=== PATIENT | female | born 1960 | race Caucasian/White ===

== ENCOUNTER 2020-03-02 02:16 | Inpatient (IN) | payer MEDICAID ==
[2020-03-02] VITALS (7 sets, daily range): BP systolic 91–148; BP diastolic 41–73; BMI 24.3
[~2020-03-02] VITALS: Ht 177.8 cm; Wt 77.1 kg
[2020-03-02] MEDS ORDERED: SYNTHROID75 MCG PO (02:21)
[2020-03-02] MEDS ORDERED: ZETIA10 MG PO (02:22)
[2020-03-02] MEDS ORDERED: KLONOPIN1 MG PO (02:22)
[2020-03-02 02:51] LABS: BASOPHILS 0.3 % (0-2); EOSINOPHILS 2.2 % (0-7); HEMATOCRIT 47.8 % (36.0-48.0); HEMOGLOBIN 15.4 g/dL (12-16); IMMATURE GRANULOCYTES 0.3 % (0-5); LYMPHOCYTES 32.8 % (15-50); MCH 31.2 pg (26.0-34.0); MCHC 32.2 g/dL (31.0-37.0); MEAN PLATELET VOLUME 10.9 fL (7.4-10.4); MONOCYTES 8.1 % (2-11); NEUTROPHILS 56.3 % (40-80); PLATELET COUNT 168 10x3/uL (130-400); RBC 4.93 10x6/uL (4.00-5.40); RDW 13.5 % (11.5-14.5); WBC 6.8 10x3/uL (4.8-10.8)
[2020-03-02 02:57] LABS: CALC OSMOLALITY 276 mosm/kg (275-300); CALCIUM 9.2 mg/dL (8.5-10.1); CARBON DIOXIDE 31.9 mmol/L (21.0-32.0); CHLORIDE - SERUM 102 mmol/L (98-107); CREATININE - SERUM 1.1 mg/dL (0.6-1.3); GLUCOSE 98 mg/dL (74-106); POTASSIUM - SERUM 4.2 mmol/L (3.5-5.1); SODIUM 138 mmol/L (136-145); UREA NITROGEN 16 mg/dL (7-18); eGFR NON AFRICAN AMERICAN 53 mL/min (90-120)
[2020-03-02 03:04] LABS: APTT 27.4 SECONDS (22.8-39.4); INR 0.95 (0.85-1.17); PROTIME 12.7 SECONDS (11.6-15.0)
[2020-03-02 03:13] LABS: ALBUMIN 3.6 g/dL (3.4-5.0); ALKALINE PHOSPHATASE 123 U/L (30-120); ALT (SGPT) 22 U/L (10-68); CKMB 0.3 U/L (0.0-3.6); CREATINE KINASE 50 UL (21-215); MAGNESIUM - SERUM 2.1 mg/dL (1.8-2.4); PROTEIN - SERUM 7.7 g/dL (6.4-8.2); THYROID STIMULATING HORMONE 0.14 uIU/mL (0.36-3.74)
[2020-03-02 03:17] LABS: TROPONIN-I < 0.017 ng/mL (0.000-0.060)
[2020-03-02 03:22] LABS: BILIRUBIN NEGATIVE (NEGATIVE); GLUCOSE NEGATIVE (NEGATIVE); KETONE NEGATIVE (NEGATIVE); NITRITE NEGATIVE (NEGATIVE); SPECIFIC GRAVITY 1.015 (1.005-1.020); UROBILINOGEN NORMAL (NORMAL)
[2020-03-02] MEDS ORDERED: ZOLOFT25 MG PO (05:27)
--- NOTE | 2020-03-02 07:34 | NUR ---
RESTING IN BED, NO DISTRESS NOTED, UP TO BATHROOM, UNSTEADY, LEANING LEFT, CONT TO MONITOR
--- NOTE | 2020-03-02 08:03 | NUR ---
SPOKE WITH DR REED, UPDATED ON ORDERS, NEW ORDERS NOTED, STATES THAT HE WILL SEE PT TOMORROW BUT IF NEEDED TODAY WE MAY CALL HIM BACK
--- NOTE | 2020-03-02 10:00 | NUR ---
REFUSING SCD, STATES THAT SHE GETS UP AND DOWN TO THE BATHROOM AND DOESNT WANT THEM ON
[2020-03-02 12:26] LABS: CKMB 0.1 U/L (0.0-3.6); CREATINE KINASE 39 UL (21-215)
[2020-03-02 12:29] LABS: TROPONIN-I < 0.017 ng/mL (0.000-0.060)
[2020-03-02 12:42] LABS: CHOL - HDL RATIO 4.9 ratio (2.3-4.1); LDL-HDL RATIO 3.5 ratio (1.5-3.5)
[2020-03-02 17:55] LABS: CKMB 0.4 U/L (0.0-3.6); CREATINE KINASE 36 UL (21-215)
[2020-03-02 17:56] LABS: TROPONIN-I < 0.017 ng/mL (0.000-0.060)
--- NOTE | 2020-03-02 20:05 | NUR ---
PATIENT REQUESTED BED ALARM BE TURNED OFF. PRINTED WAIVER FORM AND EXPLAINED TO THE PATIENT AND GUEST. PATIENT VERBALIZED UNDERSTANDING AND SIGNED FORM. PATIENT DENIES OTHER NEEDS AT THIS TIME. BED IN LOWEST POSITION AND CALL LIGHT WITHIN REACH. ENCOURAGED THE PATIENT TO CALL IF SHE HAS NEEDS. WILL CONTINUE TO MONITOR.
[2020-03-03] VITALS: BP 105/40
[2020-03-03 00:11] LABS: CKMB 0.2 U/L (0.0-3.6); CREATINE KINASE 33 UL (21-215); TROPONIN-I < 0.017 ng/mL (0.000-0.060)
[2020-03-03 04:00] VITALS: BP 106/64
[2020-03-03 06:21] LABS: BASOPHILS 0.2 % (0-2); EOSINOPHILS 1.4 % (0-7); HEMATOCRIT 44.9 % (36.0-48.0); HEMOGLOBIN 14.2 g/dL (12-16); IMMATURE GRANULOCYTES 0.2 % (0-5); LYMPHOCYTES 37.9 % (15-50); MCH 30.1 pg (26.0-34.0); MCHC 31.6 g/dL (31.0-37.0); MCV 95.3 fL (80.0-100.0); NEUTROPHILS 51.3 % (40-80); PLATELET COUNT 176 10x3/uL (130-400); RBC 4.71 10x6/uL (4.00-5.40); RDW 13.5 % (11.5-14.5); WBC 6.4 10x3/uL (4.8-10.8)
[2020-03-03 06:41] LABS: ALBUMIN 3.4 g/dL (3.4-5.0); ANION GAP 10.3 mmol/L (8-16); BILIRUBIN - TOTAL 0.28 mg/dL (0.2-1.3); CALCIUM 8.8 mg/dL (8.5-10.1); CARBON DIOXIDE 28.7 mmol/L (21.0-32.0); CREATININE - SERUM 0.9 mg/dL (0.6-1.3); PROTEIN - SERUM 6.9 g/dL (6.4-8.2)
[2020-03-03 08:43] VITALS: BP 108/50
--- NOTE | 2020-03-03 09:40 | NUR ---
ASSESSMENT PER FLOW SHEET. PATIENT IS WITHOUT DISTRESS. WEAKNESS NOTED TO LEFT ARM.PATIENT CAN AMBULATE WITH ASSIST.WAIVER SIGNED,PATIENT DECLINES BED ALARM. IV RIGHT AC TENDER,BUT FLUSHES WITH EASE AND HAS NO REDNESS.MONITOR FOR NEEDS.FAMILY AT BEDSIDE
[2020-03-03 12:49] VITALS: BP 121/55
[2020-03-03 14:28] VITALS: Ht 177.8 cm; Wt 77.1 kg
--- NOTE | 2020-03-03 15:05 | NUR ---
FAMILY REMAINS AT BEDSIDE. PATIENT IS WITHOUT NEEDS.CALL LIGHT IN REACH
[2020-03-03 17:25] VITALS: BP 110/60
[2020-03-03 20:00] VITALS: BP 132/59
[2020-03-04] VITALS: BP 105/64
[2020-03-04 04:00] VITALS: BP 93/48
[2020-03-04 05:12] LABS: BASOPHILS 0.1 % (0-2); EOSINOPHILS 1.3 % (0-7); HEMATOCRIT 44.1 % (36.0-48.0); HEMOGLOBIN 14.1 g/dL (12-16); IMMATURE GRANULOCYTES 0.1 % (0-5); LYMPHOCYTES 37.1 % (15-50); MCH 30.6 pg (26.0-34.0); MCV 95.7 fL (80.0-100.0); MEAN PLATELET VOLUME 11.4 fL (7.4-10.4); NEUTROPHILS 53.4 % (40-80); PLATELET COUNT 185 10x3/uL (130-400); RBC 4.61 10x6/uL (4.00-5.40); RDW 13.5 % (11.5-14.5); WBC 6.8 10x3/uL (4.8-10.8)
[2020-03-04 05:35] LABS: ALBUMIN 3.2 g/dL (3.4-5.0); ANION GAP 6.4 mmol/L (8-16); BILIRUBIN - TOTAL 0.13 mg/dL (0.2-1.3); CALCIUM 8.8 mg/dL (8.5-10.1); CARBON DIOXIDE 31.2 mmol/L (21.0-32.0); CREATININE - SERUM 0.9 mg/dL (0.6-1.3); PHOSPHOROUS 2.9 mg/dL (2.5-4.9); POTASSIUM - SERUM 3.6 mmol/L (3.5-5.1)
--- NOTE | 2020-03-04 08:00 | NUR ---
ASSESSMENT PER FLOW SHEET. PATIENT IS WITHOUT DISTRESS. LEFT ARM STRONGER TODAY.PATIENT STATES SHE FEELS BETTER AND HOPES TO DC HOME. MONITOR
[2020-03-04 09:30] VITALS: BP 125/59
[2020-03-04] MEDS ORDERED: PLAVIX75 MG PO (12:15)
[2020-03-04] MEDS ORDERED: ASPIRIN325 MG PO (12:15)
--- NOTE | 2020-03-04 13:31 | MORECARE ---
CASE MANAGEMENT DISCHARGE SUMMARY PATIENT: SAMMY MONROE UNIT: [id number] ADM DATE: 03/02/20 AGE: 59 : 56 SEX: F ROOM/BED: D.2237 AUTHOR: RAISA,DOC PHYSICIAN: REFERRING PHYSICIAN: NICKIE LANDON MD DATE OF SERVICE: 03/04/20 Discharge Plan Patient Name: SAMMY MONROE Facility: [facility]:[place] : 1960 Planned Disposition: Anticipated Discharge Date: Discharge Date: Expected LOS: Initial Reviewer: [email or web address] Initial Review Date: 03/04/2020 Generated: 03/04/20 2:31 pm Comments DCP- Discharge Planning Updated by [email or web address]: Adrienne Pham on 03/04/20 12:[address] Patient Name: SAMMY MONROE Admission Status: ER Accout number: [id number] Admission Date: 03-02-2020 : 1960 Admission Diagnosis: Attending: NICKIE LANDON Current LOS: 2 Anticipated DC Date: Planned Disposition: Primary Insurance: MEDICAID [place] Discharge Planning Comments: CM met with patient at bedside after explaining CM role and obtaining verbal consent. CM discussed availability / needs of home health, REHAB and medical equipment.JOSÉ SIGNED FOR [facility] . PATIENT STATES SHE HAS A WALKER AND OTHER EQUIPMENT AT HOME IF NEEDED AND HER FRIEND IS A RETIRED CHILLER HAND. PATIENT READY FOR DISHARGE. CM TO FOLLOW AND ASSIST NEEDED. FAXING REFERRAL TO [facility] NOW. Housesmith: Adrienne Pham DCPIA - Discharge Planning Initial Assessment Updated by [email or web address]: Adrienne Pham on 03/04/20 1:26 pm * Is the patient Alert and Oriented? Yes * PCP BARBI * [facility]acy [facility] * ADLs Independent * Additional services required to return to the preadmission environment? Yes * Can the patient safely return to the preadmission environment? Yes * Has this patient been hospitalized within the prior 30 days at any hospital? No External Providers External Provider: [facility] Next Contact Date: Service Request Date: Service Type: Resolution: Reviewer: Comments: Coverage Notice Reviewer: [email or web address] - Adrienne Pham Notice Issued Date-Time: 03/04/2020 13:28 Notice Type: Patient Choice Letter Notice Delivered To: Relationship to Patient: Nurse General Duty Name: Delivery Method: HAND - Hand Delivered Hoda Days: Prior Verbal Notification: Recipient Understood Notice: Yes Recipient Signature: Yes Med Rec Note Co-signed by Attending: Coverage Notice Comment: CAMI Patient Name: SAMMY MONROE Page 63600 at 1331 All edits/amendments must be made on the electronic document DICTATION DATE: 03/04/201330 HAND I BLOCKER: ROCÍO 03/04/20 1331 RPT#: [id number] DC DATE: STATUS: ADM IN [facility] [address] [place] [address] END OF REPORT
--- NOTE | 2020-03-04 14:47 | NUR ---
OT NOTE: CHECKED ON PT IN PM, SHE WAS AMBULATING HALLWAYS WITH HER BOYFRIEND. WILL ATTEMPT AGAIN TOMORROW. CARLIN MCLAIN, OTR/L
--- NOTE | 2020-03-04 15:03 | EC ---
PATIENT:SAMMY MONROE DATE OF SERVICE: 03/02/20 SEX: F MEDICAL RECORD: [id number] DATE OF : 56 LOCATION:[facility] AGE OF PATIENT: 59 ADMISSION DATE: 03/02/20 REFERRING PHYSICIAN: INTERPRETING PHYSICIAN: DIONY DAWN MD ECHOCARDIOGRAM REPORT ECHO CHARGES 4 ECHO COMPLETE Date: 03/02/20 CLINICAL DIAGNOSIS: WEAKNESS AND NUMBNESS , ASSESS FOR CLOTS ECHOCARDIOGRAPHIC MEASUREMENTS (adult normal given) AC root (d.<3.7cm) 3.0 cm LV Septum d (<1.2 cm> 1.0 cm Valve Excursion 1.3 cm LV Septum (systole) 1.3 cm Left Atria (s.<4.0cm> 4.0 cm LVPW d(<1.2cm) 1.6 cm RV (d.<2.3cm) 3.1 cm LVPW (sytole) 1.8 cm LV diastole(<5.6CM) 4.1 cm MV E-F(>70mm/sec) cm LV systole 2.3 cm LVOT Diameter 1.8 cm MV exc.(>10mm) 1.0 cm Est.ejection fraction (50-75%) % DOPPLER: LVIT cm/sec A 88.0 cm/sec E 72.0 cm/sec LA cm/sec RVSP 37 mmHg LVOT 86 cm/sec AOP1/2T m/s Asc. Ao 41 cm/sec RVOT cm/sec RA cm/sec PA cm/sec AV Gradient Peak 7.99 mmHg AV Mean 4.12 mmHg AV Area 2.1 cm MV Gradient Peak 3.11 mmHg MV Mean 1.42 mmHg MV Area cm COMMENTS: Wreath Machine Tender: 2 IZABELA SPENCE Local Owner Operator Truck Driver: 3 Dr. Jaquez TAPE# PACS Pericardial Effusion N DATE OF SERVICE: Adequate 2D, color flow imaging, spectral Doppler, and M-Mode. Borderline LVH. LV internal dimensions are normal. Wall motion is normal. EF is greater than or equal to 55%. Aortic valve is tricuspid. No evidence of stenosis by Doppler interrogation. Left atrium is normal at 4.8 cm. Mitral valve is thickened. Mild plus MR. Right-sided chambers are grossly normal. Moderate TR. ECHOCARDIOGRAM REPORT [id number] SAMMY MONROE TRANSINT:[id number] Voice Confirmation ID: [id number] DOCUMENT ID: [id number] DINOY DAWN MD at 1503 CC: [id number] DICTATION DATE: 03/03/20 1049 ACID SPLICER: 03/03/20 1202 ADM IN [facility] [address] [place] [address]
--- NOTE | 2020-03-04 16:03 | NUR ---
IV DCD WITH CATH TIP INATCT.DISCHARGE INSTRUCTIONS,STATES UNDERSTANDING.
--- NOTE | 2020-03-05 08:06 | MORECARE ---
CASE MANAGEMENT DISCHARGE SUMMARY PATIENT: SAMMY MONROE UNIT: [id number] ADM DATE: 03/02/20 AGE: 59 : 56 SEX: F ROOM/BED: D.2237 AUTHOR: RAISADOC PHYSICIAN: REFERRING PHYSICIAN: NICKIE LANDON MD DATE OF SERVICE: 03/05/20 Discharge Plan Patient Name: SAMMY MONROE Facility: [facility]:[place] : 1960 Planned Disposition: Anticipated Discharge Date: Discharge Date: 03/04/2020 Expected LOS: Initial Reviewer: [email or web address] Initial Review Date: 03/04/2020 Generated: 03/05/20 9:05 am DCP- Discharge Planning Updated by [email or web address]: Adrienne Pham on 03/04/20 12:[address] Patient Name: SAMMY MONROE Admission Status: ER Accout number: [id number] Admission Date: 03-02-2020 : 1960 Admission Diagnosis: Attending: NICKIE LANDON Current LOS: 2 Anticipated DC Date: Planned Disposition: Primary Insurance: MEDICAID [place] Discharge Planning Comments: CM met with patient at bedside after explaining CM role and obtaining verbal consent. CM discussed availability / needs of home health, REHAB and medical equipment.JOSÉ SIGNED FOR [facility] . PATIENT STATES SHE HAS A WALKER AND OTHER EQUIPMENT AT HOME IF NEEDED AND HER FRIEND IS A RETIRED FLOOR RUNNER. PATIENT READY FOR DISHARGE. CM TO FOLLOW AND ASSIST NEEDED. FAXING REFERRAL TO [facility] NOW. Account Liaison: Adrienne Pham DCPIA - Discharge Planning Initial Assessment Updated by [email or web address]: Adrienne Pham on 03/04/20 1:26 pm * Is the patient Alert and Oriented? Yes * PCP BARBI * [facility] * ADLs Independent * Additional services required to return to the preadmission environment? Yes * Can the patient safely return to the preadmission environment? Yes * Has this patient been hospitalized within the prior 30 days at any hospital? No Coverage Notice Reviewer: [email or web address] - Adrienne Pham Notice Issued Date-Time: 03/04/2020 13:28 Notice Type: Patient Choice Letter Notice Delivered To: Relationship to Patient: Acoustical Installer Name: Delivery Method: HAND - Hand Delivered Hoda Days: Prior Verbal Notification: Recipient Understood Notice: Yes Recipient Signature: Yes Med Rec Note Co-signed by Attending: Coverage Notice Comment: CAMI MONIQUE Last DP export: 03/04/20 12:31 p Patient Name: SAMMY MONROE Page 23579 at 0806 All edits/amendments must be made on the electronic document DICTATION DATE: 03/05/20804 SUPERVISOR HARD CANDY: ROCÍO 03/05/20804 RPT#: [id number] DC DATE:03/04/20 STATUS: DIS IN [facility] [address] [place] [address] END OF REPORT
== END 2020-03-04 16:03 | disposition home health service (06) | DRG 65 ==
LOC: D.ER 02:16 → D.MS 03:49
PROVIDERS: Emergency Medicine; ADMIT Emergency Medicine; ATTEND Emergency Medicine
DX: I63.342 Cerebral infarction due to thrombosis of left cerebellar artery (principal); G81.94 Hemiplegia, unspecified affecting left nondominant side; I65.02 Occlusion and stenosis of left vertebral artery; E03.9 Hypothyroidism, unspecified; F41.8 Other specified anxiety disorders; I49.3 Ventricular premature depolarization; F17.200 Nicotine dependence, unspecified, uncomplicated

== ENCOUNTER 2020-05-12 05:18 | Day surgery (SDC) | payer MEDICAID ==
[~2020-05-12] VITALS: Ht 177.8 cm; Wt 77.3 kg
--- NOTE | ~2020-05-12 | HEMODYNAMI ---
PATIENT:SAMMY MONROE MEDICAL RECORD: [id number] : 56 LOCATION:[facility]# [id number] ADMISSION DATE: 05/12/20 Generatedon:05/12/202010:22 Patient name: SAMMY MONROE Patient #: [id number] SSN : : 1960 Date of study: 05/12/2020 Page: Of Hemodynamic Procedure Report Patient Data Patient Demographics Procedure consent was obtained First Name: SAMMY Gender: Female Last Name: MABEL : 1960 Middle Initial: E Age: 59 year(s) Patient #: [id number] Race: Unknown Additional ID: [id number] Contact details Address: [address] [place] [address] State: [place] City: [facility] Zip code: [address] Admission Admission Data Admission Date: 05/12/2020 Admission Time: 5:18 Room #: [facility] Procedure Procedure Types Cath Procedure Peripheral Cath Diagnostic Procedure Miscellaneous Procedure Description Procedure Date Procedure Date: 05/12/2020 Procedure Start Time: 9:40 Procedure Staff Name Function Arben Larson MD Performing Physician Reno Ledesma RT Monitor KELIN WALKER RT Scrub Luis RUTH RN Nurse Dilcia Aguilar RN Nurse Procedure Data Cath Procedure Fluoroscopy Diagnostic fluoroscopy Total fluoroscopy Time: 5.9 time: 5.9 min min Diagnostic fluoroscopy Total fluoroscopy dose: 391 dose: 391 mGy mGy Contrast Material Contrast Material Type Amount (ml) Isovue 300 100 Diagnostic catheters Device Type Used For End Catheter Placement Merit ULTRA BOLUS FLUSH 5Fr 90CM catheter ([id number]) Merit Impress Medeiros 5FR. 100CM catheter ([id number]) Procedure Medications Medication Administration Route Dosage Lidocaine 1% added to field 20 Heparin Flush Bag added to field 2 bags (1000units/500ml NS) Heparin Flush Bag added to field 2 bags (1000units/500ml NS) Fentanyl I.V. 50 mcg Versed I.V. 1 mg Fentanyl I.V. 50 mcg Versed I.V. 1 mg Hemodynamics Rest Heart Rate: 67 (bpm) Snapshots Pre Cath Intra NCS Post Cath Vital Signs Time Heart Resp SPO2 etCO2 NIBP (mmHg) Rhythm Pain Sedation Rate (ipm) (%) (mmHg) Status Level (bpm) 9:18:17 66 11 36.1 142/77(94) NSR 0 (11) 9(A) , No pain 9:22:31 63 10 31.6 146/73(103) NSR 0 (11) 9(A) , No pain 9:26:47 66 17 33.9 141/70(103) NSR 0 (11) 9(A) , No pain 9:31:03 65 16 100 32.4 134/64(99) NSR 0 (11) 9(A) , No pain 9:35:15 65 8 100 34.6 139/70(101) NSR 0 (11) 9(A) , No pain 9:39:31 64 16 99 33.1 143/67(100) NSR 0 (11) 9(A) , No pain 9:43:47 60 10 100 39.1 136/68(104) NSR 0 (11) 9(A) , No pain 9:48:01 57 14 100 36.9 142/64(96) NSR 0 (11) 9(A) , No pain 9:52:19 59 14 100 36.9 139/62(94) NSR 0 (11) 9(A) , No pain 9:56:35 58 14 100 36.1 142/65(93) NSR 0 (11) 9(A) , No pain 10:01:23 63 11 100 39.9 137/67(91) NSR 0 (11) 9(A) , No pain 10:05:37 65 13 100 37.6 137/70(95) NSR 0 (11) 9(A) , No pain 10:09:49 64 21 100 38.3 138/76(97) NSR 0 (11) 9(A) , No pain 10:14:01 62 10 100 25.5 151/75(112) NSR 0 (11) 9(A) , No pain 10:18:22 56 10 100 39.1 132/63(91) NSR 0 (11) 9(A) , No pain Medications Time Medication Route Dose Verified Delivered Reason Notes Effe ctiveness by by 9:39:48 Lidocaine 1% added 20ml Arben Theodore for local to vial Neo Larson MD anesthetic field MD 9:40:00 Heparin Flush added 2 Arben Theodore used for Bag to bags Neo Larson MD procedure (1000units/500ml field NS) 9:40:01 Heparin Flush added 2 Arben Theodore used for Bag to bags Neo Larson MD procedure (1000units/500ml field NS) 9:40:12 Fentanyl I.V. 50 Arben Dilcia for mcg Jeff Larson RN sedation 9:40:18 Versed I.V. 1 mg Arben Ha for Jeff Larson RN sedation 10:01:41 Fentanyl I.V. 50 Arben Dilcia for mcg Jeff Larson RN sedation 10:01:45 Versed I.V. 1 mg Arben Dilcia for Jeff Larson RN sedation Procedure Log Time Note 9:06:31 KELIN CERVANTES (R) sent for patient. Start room use. 9:07:00 Time tracking: Regular hours (M-F 7:00 - 5:00) 9:07:05 Plan of Care:Hemodynamics will remain stable., Cardiac rhythm will remain stable., Comfort level will be maintained., Respiratory function will remain adequate., Patient/ family verbilizes understanding of procedure., Procedure tolerated without complication., Recovers from procedure without complications.. 9:07:10 Use device set IR Diagnostic 9:07:11 Tegaderm 4 x 4 (1626W) opened to sterile field. 9:07:12 Sterile Angiographic Pack opened to sterile field. 9:07:12 Bag Decanter () opened to sterile field. 9:07:13 ACIST Manifold (67781) opened to sterile field. 9:07:14 ACIST Hand Control (28184) opened to sterile field. 9:07:15 ACIST Syringe (53707) opened to sterile field. 9:07:23 Patient received from Outpatients to IR Alert and oriented. Tansferred to table in Supine position. 9:07:26 Signed procedure consent form obtained from patient. 9:07:27 Warm blankets applied, and christi hugger turned on for patient comfort. 9:07:27 Correct patient and procedure confirmed by team. 9:07:29 ECG and BP/O2 sat monitors applied to patient. 9:07:30 Full Disclosure recording started 9:07:30 - 9:07:33 Pre-procedure instructions explained to patient. 9:07:38 H&P Date Dictated: 05/12/2020 H&P Addendum completed by physician on day of procedure. (MUST COMPLETE FOR ALL OUTPATIENTS). 9:07:39 Pre-op teaching completed and patient verbalized understanding. 9:07:41 Family in waiting room. 9:12:20 Is the patient allergic to Iodine/contrast media? No. 9:12:21 Is patient on blood thinner?Yes 9:12:25 ACC The patient was administered the following blood thiners within the last 24 hours: ACCAspirin, ACCPlavix 9:12:28 Patient diabetic? No. 9:12:38 - 9:12:39 ----Pre-sedation anethsthesia assessment.---- 9:12:42 Previous problem with sedation/anesthesia? No ? 9:13:05 Snore? Yes 9:13:07 Sleep apnea? No 9:13:11 Deviated septum? No 9:13:13 Opens mouth fully? Yes 9:13:14 Sticks out tongue? Yes 9:13:18 Airway obstruction? No ? 9:13:24 Dentures? Yes out 9:13:52 Pre procedure: right dorsailis pedis pulse Doppler 9:13:57 Pre procedure: right posterior tibial pulse Doppler 9:17:07 Vital chart was started 9:18:59 Baseline sample Acquired. 9:19:08 Salima counted by scrub and verified by R.N. 9:19:09 Alarms reviewed by R. N. 9:19:12 Right groin area was prepped with chlora-prep and draped in sterile fashion 9:20:29 IV patent on arrival in right wrist with 0.45%NaCl at KVO. 9:33:16 Maximum allowable contrast dose (3.7 X eGFR X 0.75)166.5 ml. 9:37:48 2) 60-89 Mildly reduced kidney function, and other findings (as for stage 1) point to kidney disease. 9:38:00 Physician arrived 9:38:01 --------ALL STOP TIME OUT------ 9:38:01 Final Timeout: patient, procedure, and site verified with staff and physician. All members of the team are in agreement. 9:38:03 Right groin site verified by team. 9:38:07 Fire Safety Assessment: A--An alcohol-based skin anteseptic being used preoperatively., C--Open oxygen or nitrous oxide is being used. 9:38:16 Sedation plan: IV Moderate Sedation Medication:Versed, Fentanyl 9:39:48 Lidocaine 1% 20ml vial added to field was administered by Arben Larson MD; for local anesthetic; Verbal order read back and verified. 9:40:00 Heparin Flush Bag (1000units/500ml NS) 2 bags added to field was administered by Arben Larson MD; used for procedure; Verbal order read back and verified. 9:40:01 Heparin Flush Bag (1000units/500ml NS) 2 bags added to field was administered by Arben Larson MD; used for procedure; Verbal order read back and verified. 9:40:02 Procedure started. 9:40:07 Local anesthetic to right femoral artery with Lidocaine 1% by Arben Larson MD.INITIAL ACCESS ONLY 9:40:11 TUBING Contrast Injection High Pressure (ITV132H) opened to sterile field. 9:40:11 Micropuncture VSI 4FR kit opened to sterile field. 9:40:11 SHEATH 5FR Henderson (AYV516) opened to sterile field. 9:40:12 Fentanyl 50 mcg I.V. was administered by Dilcia Aguilar RN; for sedation ; Verbal order read back and verified. 9:40:12 DOC .035 wire (H64149) opened to sterile field. 9:40:15 A NEWLINE SOFTWARE ULTRA BOLUS FLUSH 5Fr 90CM catheter ([id number]) was advanced over the wire and used for . 9:40:18 Versed 1 mg I.V. was administered by Dilcia Aguilar RN; for sedation; Verbal order read back and verified. 9:50:34 A Merit Impress Medeiros 5FR. 100CM catheter ([id number]) was advanced over the wire and used for . 9:50:36 GLIDE WIRE ANGLE 260cm (TG0821) opened to sterile field. 10:01:41 Fentanyl 50 mcg I.V. was administered by Dilcia Aguilar RN; for sedation ; Verbal order read back and verified. 10:01:45 Versed 1 mg I.V. was administered by Dilcia Aguilar RN; for sedation; Verbal order read back and verified. 10:11:47 EXOSEAL 5Fr (EX500) opened to sterile field. 10:11:54 Procedure ended.(Physican Out) 10:12:16 Fluoroscopy time 05.90 minutes. 10:12:21 Fluoroscopy dose: 391 mGy 10:12:21 Flurop Dose total: 391 10:12:28 Contrast amount:Isovue 300 100ml. 10:12:32 Insertion/operative site no bleeding no hematoma. 10:12:43 Post-op/insertion site Right Femoral artery dressed using a 4 x 4 and Tegaderm. 10:12:46 Post procedure instruction explained to patient.Patient verbalizes understanding. 10:12:47 Procedure and supply charges have been captured, reviewed, submitted an d are correct. 10:20:39 Post right femoral artery:stable 10:20:41 Post Procedure Pulses reassessed and unchanged 10:20:48 Report given to Outpatients. 10:20:52 Patient transfered to Outpatients with Bed. 10:22:41 Vital chart was stopped Device Usage Item Name Manufacture Quantity Catalog Number [facility] Lot# / Charge Number Stock Stock Serial# Code Tegaderm 4 x 4 3M 1 [id number] 223870 [id number] 5 (1626W) Sterile Cardinal 1 [id number] 685199 992272 5 Angiographic Health Pack Bag Decanter Microtek 1 067157 20979 881602 5 (2002S) Medical Inc. ACIST Manifold Acist 1 13772 459603 627899 490565 5 (73781) Medical Systems Inc ACIST Hand Acist 1 28938 418790 187317 540889 5 Control Medical (66557) Systems Inc ACIST Syringe Acist 1 15448 067363 781231 878663 20 (32353) Medical Systems Inc TUBING Merit 1 [id number] 022733 306050 464093 5 Contrast Medical Injection High Pressure (QGU685V) Micropuncture VSI VASCULAR 1 7266V 494386 213675 5 VSI 4FR kit SOLUTIONS SHEATH 5FR Terumo 1 VWT639 472798 639501 333482 5 Henderson (ZDC605) DOC .035 wire Cook Medical 1 Y42714 125315 632525 5 (N87317) Merit ULTRA Merit 1 [id number] 466242 506605 5 BOLUS FLUSH Medical 5Fr 90CM catheter ([id number]) Merit Impress Merit 1 [id number] 269281 700531 5 Medeiros 5FR. Medical 100CM catheter ([id number]) GLIDE WIRE Terumo 1 VI4693 714169 321907 052442 5 ANGLE 260cm (DY9778) EXOSEAL 5Fr Cardinal 1 EX500 202986 111060 666433 10 [id number] (EX500) Health Signature Audit Flat Top Stage Time Signature Unsigned Intra-Procedure 05/12/2020 KELIN WALKER RT 10:22:35 AM (R) [facility] [address] [place] [address]
[~2020-05-12 05:18] MED LIST: ASPIRIN325 MG PO; KLONOPIN1 MG PO; PLAVIX75 MG PO; SYNTHROID75 MCG PO; ZETIA10 MG PO; ZOLOFT25 MG PO
[2020-05-12 07:08] VITALS: Ht 177.8 cm; Wt 77.3 kg
[2020-05-12 08:40] LABS: BASOPHILS 0.1 % (0-2); EOSINOPHILS 1.2 % (0-7); HEMATOCRIT 45.8 % (36.0-48.0); HEMOGLOBIN 14.5 g/dL (12-16); IMMATURE GRANULOCYTES 0.1 % (0-5); LYMPHOCYTES 29.9 % (15-50); MCH 30.7 pg (26.0-34.0); MCHC 31.7 g/dL (31.0-37.0); MEAN PLATELET VOLUME 11.1 fL (7.4-10.4); MONOCYTES 8.3 % (2-11); NEUTROPHILS 60.4 % (40-80); PLATELET COUNT 198 10x3/uL (130-400); RBC 4.72 10x6/uL (4.00-5.40); RDW 14.4 % (11.5-14.5); WBC 6.8 10x3/uL (4.8-10.8)
[2020-05-12 08:44] LABS: APTT 30.6 SECONDS (22.8-39.4); INR 0.96 (0.85-1.17); PROTIME 12.8 SECONDS (11.6-15.0)
[2020-05-12 08:51] LABS: ANION GAP 6.7 mmol/L (8-16); CARBON DIOXIDE 32.3 mmol/L (21.0-32.0)
--- NOTE | 2020-05-12 17:30 | NUR ---
RIGHT FOREARM PIV DC'D WITH TIP INTACT. DISCHARGE INSTRUCTIONS REVIEWED WITH PATIENT AND SIGNIFICANT OTHER. PATIENT DRESSING IN PERSONAL CLOTHING
== END 2020-05-12 17:40 | disposition home or self-care (01) ==
LOC: D.SDCHOLD 05:18 → D.OPS 05:18 → D.SDCHOLD 08:00 → EDSTATUS 08:00 → D.OPS 17:40 → D.SDCHOLD 17:40
PROVIDERS: ATTEND General Practice
DX: I65.02 Occlusion and stenosis of left vertebral artery (principal); R42 Dizziness and giddiness; R11.0 Nausea